=== PATIENT | male | born 1930 | race Caucasian/White ===

== ENCOUNTER 2019-03-15 13:54 | Outpatient (CLI) | payer MEDICARE, OTHER ==
[2019-03-15 17:16] VITALS: BP 156/78
--- NOTE | 2019-03-15 17:16 | SLEEP CARE CONSULTATION ---
Information from patient questionnaire entered by Edwige Chatterjee. I have reviewed and concur with the information entered by Edwige Chatterjee. This document represents the service I personally performed and the decisions made by me, Jaleesa Coates MD, [facility]. History of Present Illness Reason for Visit: New patient, Previously diagnosed sleep apnea (AHI: 42.8), sleep apnea on CPAP therapy Chief Complaint: reports: Other (need new mask) Usual bedtime: 2230 Time it takes to fall asleep: 20-120 minutes Snores at night: Yes Observed to quit breathing while asleep: Yes Sleeps alone due to snoring: No Number of times waking at night: 0-3 Reasons for waking at night: reports: Snoring, Gasping for air, Bathroom Toss, Turn, or Twitch while sleeping: No Recalls having dreams: Yes Usually gets out of bed at: 0730 Feels refreshed in the morning: Yes Morning headache: No Sleepy or fatigued during the day: Yes Ever fallen asleep while driving: Yes Takes day naps: No Dreams during day naps: No Prior sleep studies: Yes Year and Where: 2007 [facility] Additional HPI information: I had the pleasure of seeing Mr. Hawkins today regarding obstructive sleep apnea- hypopnea. As you know, he is a 89 old gentleman who was diagnosed with the sleep-disordered breathing here in 2007. The AHI was 42.8 and will oxygen saturation, 85%. He was prescribed a CPAP device set at 12 cmH2O which he thinks is too low. He uses every night and all night. The compliance/efficacy report is not available because his machine is too old. He wears a nasal mask. He gets his supplies from [address]. He finds the treatment very beneficial. [place] Sleepiness Scale score is 5. Subjective Initial [place] Sleepiness Scale score: 5 Past Medical History Past Medical History: reports: Arthritis, Impotence, Asthma Social History The patient's occupation is RETIRED. Patient is and lives in [place]. Have you smoked in the past 12 months: Yes Years of smokin Quit date: 1966 Alcohol use: Yes Alcohol amount and frequency: 2 beers every week or two Caffeine use: Yes Caffeine amount and frequency: 4 cups coffee Allergies and Home Medications Drug allergies reviewed: Yes Home medication list reviewed: Yes Review of Systems Weight gain over past 5 years: 0-15 Weight loss over past 5 years: 10-15 Cardiovascular: reports: irregular heart rate or pulse, leg or foot swelling Respiratory: reports: sputum production Gastrointestinal: denies: heartburn, difficulty swallowing, nausea, vomitting, diarrhea, abdominal pain, other Urinary: reports: incontinence, impotence Neurological: reports: gait or balance problems Psychiatric: denies: Attention Deficit Hyperactivity, anxiety, depression, mood disorder, claustrophobia, other Ear/Nose/Throat: reports: nasal congestion, sinus problems, nose bleeds, dry mouth/throat, wisdom teeth removed Endocrine: denies: thyroid disease, history of goiter, sluggishness, too hot or cold, excessive thirst, increased appetite, increased urination, unexplained weakness, other Musculoskeletal: denies: joint pain, neck pain, back pain, joint swelling, muscle pain or cramping, mobility problems, other Immunologic: reports: sneezing, itching Physical Exam Vital signs obtained and entered by: Dr. Coates Blood Pressure: 156/78 Heart Rate: 71 O2 Saturation: 97 Height: 5 ft 11 in Weight: 210 lb Body Mass Index: 29.2 BMI Classification: Overweight Neck circumference: 16.5 HEENT: No craniofacial malformation Nostrils: patent to airflow Turbinates: normal Septum: midline Mouth and throat: narrow oropharynx Soft palate: long Hard palate: normal Uvula: normal Uvula visualization: 25% Mallampati Class III Tongue: normal in size Tonsils: absent bilaterally Chin and jaw: normal size and position Neck: normal w/o lymphadenopathy or thyromegaly Heart: regular rate and rhythm Lungs: clear bilaterally Abdomen: soft, non-tender Extremities: no edema or clubbing Neurologic: intact, no focal deficits Impression and Plan IMPRESSION: 1. Obstructive Sleep Apnea-Hypopnea Syndrome, severe, as previously diagnosed. The patient has had good treatment compliance. The current pressure setting appears effective and comfortable. The patient experiences improvement on the treatment. Because the CPAP is now older than the useful life of 5 years, I will order the patient a new one and make it an autoCPAP set between 14 and 16 cmH2O. Plan: 1. Schedule polysomnography + manual CPAP titration study and return in 1 to weeks after the study to discuss result and initiate therapy. 2. Avoid long distance driving or when feeling sleepy. 3. Avoid alcohol, sedative and muscle relaxant around bedtime. 4. Attempt to lose weight. I spent 100% of this 20 minute visit face to face with the patient with greater than 50% of this was spent time counseling the patient and coordination of care.
== END 2019-03-15 13:55 | disposition home or self-care (01) ==
LOC: SC 13:54
PROVIDERS: ATTEND Internal Medicine Pulmonary Disease
DX: G47.33 Obstructive sleep apnea (adult) (pediatric) (principal)
CPT/HCPCS: 99203; G0463; 99212

== ENCOUNTER 2019-07-10 15:57 | Emergency (ER) | payer MEDICARE, OTHER ==
[2019-07-10] MEDS ORDERED: TETANUS/DIPHTHERIA/PERTUSSIS 0.5 ML SYRINGE IM ONE (16:13)
[2019-07-10] MEDS ORDERED: LIDOCAINE 1%-EPI 1:100000 20 ML MDV SUBQ STA (16:13)
[2019-07-10] MEDS ORDERED: cephALEXin 250 MG CAPSULE PO STA (16:13)
[2019-07-10] MEDS ORDERED: BUFFERED LIDOCAINE 10 ML SYRINGE SUBQ STA (16:13)
--- NOTE | 2019-07-10 16:14 | ED Physician Documentation ---
PD HPI UPPER EXT INJURY - Stated complaint Stated Complaint: LT HAND LAC - Chief complaint Chief Complaint: Laceration - History obtained from History obtained from: Patient - History of Present Illness Location: Left ([id number] 89-year-old gentleman struck his left hand a lawnmower just prior to arrival and has multiple lacerations and a contusion on the left hand from banging it on the way out. Tetanus is not quite clear, he thinks less than 10 but maybe not less than 5 years.) Review of Systems Constitutional: reports: Reviewed and negative Throat: reports: Reviewed and negative Cardiac: reports: Reviewed and negative PD PAST MEDICAL HISTORY - Past Medical History Past Medical History: Yes Cardiovascular: Hypertension Respiratory: None Neuro: None Endocrine/Autoimmune: None GI: None : Benign prostate hypertrophy HEENT: None Psych: None Musculoskeletal: None Derm: None - Present Medications Home Medications: Ambulatory Orders Medication Instructions Recorded Confirmed Alfuzosin HCl [Alfuzosin HCl ER] 10 mg PO DAILY 04/18/14 11/14/14 Finasteride 5 mg PO DAILY 04/18/14 11/14/14 Furosemide 20 mg PO DAILY 04/18/14 11/14/14 Omeprazole 20 mg PO DAILY 04/18/14 11/14/14 PredniSONE [PredniSONE INTENSOL] 1 drop PO DAILY 04/18/14 11/14/14 predniSONE [Deltasone] 8 mg PO DAILY 04/18/14 11/14/14 Atorvastatin Calcium [Lipitor] 10 mg PO DAILY 05/09/14 11/14/14 Apraclonidine HCl [Iopidine] 1 drop OP DAILY 11/14/14 11/14/14 Brimonidine Tartrate [Alphagan P] 1 drop OP BID 11/14/14 11/14/14 Magnesium Oxide 500 mg PO DAILY 11/14/14 11/14/14 Cephalexin [Keflex] 500 mg PO Q6H #20 capsule 07/10/19 - Allergies Allergies/Adverse Reactions: Allergies Allergy/AdvReac Type Severity Reaction Status Date / Time metronidazole [From Flagyl] Allergy Anaphylaxis Verified 07/10/19 16:04 - Social History Does the pt smoke?: No Smoking Status: Never smoker - Immunizations Immunizations are current?: No Immunizations: TDAP current <10years - POLST Patient has POLST: No PD ED PE NORMAL - Vitals Vital signs reviewed: Yes - General General: Alert and oriented X 3, No acute distress - Extremities Extremities: Other (There is multiple lacerations on the left hand, one on the dorsum of the left hand over the second metacarpal, curvilinear alert and shallow. Multiple lacerations on the radial side of the left second finger without distal neurovascular compromise or obvious weakness in flexion or extension.) - Neuro Neuro: Alert and oriented X 3, Normal speech Results - Vitals Vitals: Vital Signs - 24 hr 07/10/19 07/10/19 16:01 17:32 Temperature 36.5 C 36.6 C Heart Rate 58 L 60 Respiratory 24 20 Rate Blood Pressure 167/75 H 157/74 H O2 Saturation 99 99 Oxygen O2 Source Room air - Rads (name of study) L hand 3v Radiology: EMP read contemporaneously (no frx) Procedures - Laceration (location) Multiple lacerations over the dorsum of the hand the second digit. In total they measured 9 cm Length in cm: 9 Wound type: Other (On the dorsum of the hand there was a curved laceration over the second metacarpal. It was very shallow it was irrigated and Steri-Stripped. The number complicated lacerations on the radial side of the second digit at the level of the proximal phalanx and MCP totaling 5 cm and then a 1-1/2 cm laceration on the dorsum of the left second finger longitudinally at the level of the DIP.) Neurovascular status: Sensory intact (No neurovascular injury evident in the first or second digit.), Vascular intact (Normal cap refill of all the digits.) Tendon involvement: Tendon intact (Excellent strength in flexion and extension of the second digit.) Anesthesia: Lidocaine 1%, With bicarb Wound Preparation: Irrigated copiously NS Skin layer closure: Other (The 4 cm laceration on the dorsum of the hand was closed with Steri-Strips, the complicated lacerations of the proximal part of the second digit were closed with 4-0 nylon, the smaller laceration at the distal dorsal digit was closed with 5-0 nylon. Total of 21 sutures simple interrupted.) Other: Tetanus booster given Complexity: Simple - Splint (location) L hand Splint applied by: Tech Type of splint: Fiberglass (radial gutter), Short arm Other: Patient tolerated well, No complications, Neurovascular intact Departure - Departure Disposition: 01 Home, Self Care Clinical Impression: Hand laceration Qualifiers: Encounter type: initial encounter Foreign body presence: without foreign body Laterality: left Qualified Code(s): S61.412A - Laceration without foreign body of left hand, initial encounter Condition: Good Record reviewed to determine appropriate education?: Yes Instructions: ED Laceration Hand Prescriptions: Cephalexin [Keflex] 500 mg PO Q6H #20 capsule Comments: Come back for any signs of infection which would include: Redness, swelling, drainage, increased pain, or fevers. You can wash it soap and water. Keep it covered and moist with bacitracin ointment which is available over the counter; avoid neosporin. Follow-up with your physician in 14 days for suture removal. Discharge Date/Time: 07/10/19 17:33
--- NOTE | 2019-07-10 16:41 | XRAY Report ---
Reason: hand contusion, multiple lacs Procedure Date: 07/10/2019 Accession Number: [id number] / [id number] Procedure: XR - Hand 3 View LT CPT Code: Final Report FULL RESULT: EXAM: LEFT HAND RADIOGRAPHY EXAM DATE: 07/10/2019 04:30 PM. CLINICAL HISTORY: Hand contusion, multiple lacs. COMPARISON: None. TECHNIQUE: 3 views. FINDINGS: Bones: No fractures. No bony abnormalities. Joints: Osteoarthritis of the distal interphalangeal joints, especially the first digit, but is mild. Moderate arthropathy at the first carpometacarpal joint with joint space narrowing and some subchondral cystic change. Soft Tissues: Laceration of the second digit with soft tissue swelling. No radiopaque foreign bodies. IMPRESSION: Laceration to second digit, no radiopaque foreign body or bony abnormality. RADIA
[2019-07-10 17:34] VITALS: BP 157/74
== END 2019-07-10 17:33 | disposition home or self-care (01) ==
LOC: ED 15:57
DX: S61.412A Laceration without foreign body of left hand, initial encounter (principal); I10 Essential (primary) hypertension; S61.211A Laceration without foreign body of left index finger without damage to nail, initial encounter; W26.8XXA Contact with other sharp object(s), not elsewhere classified, initial encounter
CPT/HCPCS: 29125; 73130; 90471; 90715; 99283; A9270

== ENCOUNTER 2019-08-10 17:04 | Outpatient (CLI) | payer MEDICARE, OTHER ==
--- NOTE | 2019-08-10 10:21 | SLEEP CARE CONSULTATION ---
Information from patient questionnaire entered by Edwige Chatterjee. I have reviewed and concur with the information entered by Edwige Chatterjee. This document represents the service I personally performed and the decisions made by me, Shayy Polk, RN, MSN, [employer]. History of Present Illness Service Date and Time: 08/10/2019929 Previous diagnosis: Severe, Obstructive Sleep Apnea-Hypopnea Syndrome AHI: 42.8 Reason for follow up: other (5 month with pressure issues) Equipment type: CPAP Equipment obtained from: [facility], [place] (delay in getting new CPAP until this month) Mask style: Full face Backup mask available: Yes Last cushion change: at set up CPAP Compliance Data - Data Reviewed with Patient Average duration of nightly device use: 9h 23m Compliance rate %: 73 Current pressure setting (cmH2O): 14-16 Subjective Patient concerns: reports: mask leak noise (waking to mask leak farts ). denies: aerophagia, mask discomfort, air blowing in eyes, condensation in mask/hose, nasal congestion, dry mouth, nose, throat, epistaxis, other Current pressure setting perceived as: too high On therapy, patient: reports: sleeping better, more rested overall. denies: drowsiness while driving Initial [place] Sleepiness Scale score: 5 Physical Exam Height: 5 ft 11 in Impression and Plan 1. Obstructive Sleep Apnea-Hypopnea Syndrome, severe, with good treatment compliance and elevated residual AHI on new CPAP. On CPAP therapy, the patient has better sleep quality and is more rested overall. Patient is pleased with his new mask fit but has nasal bridge soreness. Thus he is advised to loosen mask slightly for comfort and apply a bandaid to bridge of nose to protect skin. If continued mask concerns, he is to contact [facility], [place]. The residual AHI is much worse with new mask and much more mask leaks increasing resiudal AHI from old CPAP and mask of 5.4 to 20.1. He is also uncomfortable with new pressure range of [id number] as he is waking to mask squeak noises. Thus after review of compliance data from both his old and new CPAP, I will lower his CPAP pressure to [id number]. Patient agreed with plan. He is instructed to contact this office if pressure still uncomfortable. I will will change on modem after visit for patien t comfort and request to complete as soon as can. In addition we discussed measures to reduce nasal congestion that he typically gets this time of year by increasing humidity, using saline nasal spray prior to CPAP to clear nasal passages and showering at night to wash off allergens and facilitate nasal breathing. I explained rationale for a follow up in a month to check 1st compliance on his new CPAP and that staff will contact him to make appointment. Patient's apnea severity and rationale for treatment to reduce apnea, improve sleep quality and reduce cardiovascular and cerebrovascular events was reviewed. * * Change CPAP pressure to 12 cmH2O * implement measures to reduce discomfort of mask and to reduce nasal congestion. * Notify me if snoring with mask or feeling that the pressure is too much or too little * Attempt to lose weight * Call this office if any problems using CPAP * Return for follow up in 1 month for 1st compliance of new CPAP , or sooner if concerns arise Visit Type: Telehealth Phone (to minimize risk of Covid 19 exposure, the patient agrees to telehealth visit and billing of his insurance) Patient Location: Home Location of Provider: Home Patient agrees and consents to this telehealth visit type: Yes Time Spent with Patient (minutes): 10 Provider Statement: I spent 100% of the Telehealth Phone Call with the patient with greater than 50% spent counseling the patient and coordination of care.
== END 2019-08-10 17:05 | disposition home or self-care (01) ==
LOC: SC 17:04
PROVIDERS: ATTEND Nurse Practitioner Family
DX: G47.33 Obstructive sleep apnea (adult) (pediatric) (principal)

== ENCOUNTER 2020-05-09 08:00 | Outpatient (CLI) | payer MEDICARE, OTHER ==
[2020-05-09 12:53] LABS: BASOPHILS % (AUTO) 0.8 %; EOSINOPHILS # (AUTO) 0.2 10^3/uL (0.0-0.7); EOSINOPHILS % (AUTO) 3.1 %; HGB - HEMOGLOBIN 13.5 g/dL (14.0-18.0); LYMPHOCYTES # (AUTO) 1.1 10^3/uL (1.5-3.5); LYMPHOCYTES % (AUTO) 21.3 %; MEAN CORPUSCULAR HEMOGLOBIN 34.9 pg (27.0-31.0); MEAN CORPUSCULAR HGB CONC 34.4 g/dL (32.0-36.0); MEAN CORPUSCULAR VOLUME 101.6 fL (80.0-94.0); MEAN PLATELET VOLUME 11.6 fL (7.4-11.4); MONOCYTES # (AUTO) 0.6 10^3/uL (0.0-1.0); MONOCYTES % (AUTO) 10.6 %; NEUTROPHILS # (AUTO) 3.3 10^3/uL (1.5-6.6); PLT - PLATELET COUNT 135 10^3/uL (130-450); RED BLOOD COUNT 3.87 10^6/uL (4.70-6.10); RED CELL DISTRIBUTION WIDTH 12.8 % (12.0-15.0); WHITE BLOOD COUNT 5.2 x10^3/uL (4.8-10.8)
[2020-05-09 13:12] LABS: ALBUMIN 4.1 g/dL (3.2-5.5); ALBUMIN/GLOBULIN RATIO 1.4 (1.0-2.2); ALKALINE PHOSPHATASE 42 IU/L (42-121); ALT ALANINE AMINOTRANSFERASE 13 IU/L (10-60); AST ASPARTATE AMINOTRANSFERASE 19 IU/L (10-42); BUN - BLOOD UREA NITROGEN 22 mg/dL (6-20); CALCIUM 9.6 mg/dL (8.5-10.3); CARBON DIOXIDE - CO2 29 mmol/L (21-32); CHLORIDE 97 mmol/L (101-111); CHOL/HDL RATIO 2.1 (<5.0); CHOLESTEROL 152 mg/dL; CREATININE 1.1 mg/dL (0.6-1.2); GLUCOSE 99 mg/dL (70-100); HDL CHOLESTEROL 71 mg/dL; LDL CHOLESTEROL,CALCULATED 70 mg/dL; SODIUM 136 mmol/L (135-145); VLDL CHOLESTEROL 11 mg/dL
== END 2020-05-09 08:01 | disposition home or self-care (01) ==
LOC: LAB.WCP 08:00
PROVIDERS: ATTEND Internal Medicine
DX: D69.6 Thrombocytopenia, unspecified (principal); G47.62 Sleep related leg cramps; I25.5 Ischemic cardiomyopathy; R42 Dizziness and giddiness
CPT/HCPCS: 36415; 80053; 80061; 83721; 84443; 85025

== ENCOUNTER 2020-09-26 10:11 | Outpatient (CLI) | payer MEDICARE, OTHER ==
--- NOTE | 2020-09-26 10:52 | SLEEP CARE CONSULTATION ---
Information from patient questionnaire entered by Linda Benitez. I have reviewed and concur with the information entered by Linda Benitez. This document represents the service I personally performed and the decisions made by , Teodora Fierro ARNP. History of Present Illness Service Date and Time: 09/26/2020 1011 Previous diagnosis: Severe, Obstructive Sleep Apnea-Hypopnea Syndrome AHI: 42.8 (in 2007) Reason for follow up: annual (last seen 09/2019) Equipment type: CPAP Equipment obtained from: [facility], [place] (getting supplies as needed; too far to travel there/gets through mail) Mask style: Full face (medium) Mask brand: Resmed Backup mask available: Yes (old mask) Prior sleep studies: Yes Year and Where: 2007 - [facility] HPI additional information: BLAZE MARINO was diagnosed to have severe, AHI 42.8, obstructive sleep apnea- hypopnea syndrome and returned today for CPAP therapy annual follow-up. CPAP Compliance Data - Data Reviewed with Patient Average duration of nightly device use: 9 hr 2 min Compliance rate %: 99 (180 days) Current pressure setting (cmH2O): 14 Humidity settin Average residual AHI: 8.2 Compliance data discussion: Mirage activa lt nasal mask Ultra Mirage full face Subjective Missed days of use due to: reports: mask issues Patient concerns: reports: air blowing in eyes, mask leak noise, nasal congestion (due to allergies), dry mouth, nose, throat, other (snore while using device). denies: aerophagia, mask discomfort, condensation in mask/hose, epistaxis Observed to snore while using device: Yes Current pressure setting perceived as: comfortable On therapy, patient: reports: sleeping better, awakening more refreshed, being more awake and alert during the day, more rested overall. denies: drowsiness while driving Initial [place] Sleepiness Scale score: 5 (in 2019)(12 in 2008) Current [place] Sleepiness Scale score: 5 Allergies and Home Medications Home medication list reviewed: Yes (no changes) Review of Systems Review of systems same as previous: Yes (no changes) Physical Exam Heart Rate: 65 O2 Saturation: 98 Height: 5 ft 11 in Weight: 195 lb Body Mass Index: 27.1 BMI Classification: Overweight Impression and Plan 1. Obstructive Sleep Apnea-Hypopnea Syndrome, severe, with excellent treatment compliance and fair apnea control with elevated residual AHI. On CPAP therapy, the patient has better sleep quality and is more rested overall. The patients pressure will be changed to autoCPAP 15 cmH20 for elevation of residual AHI. Patient advised to contact me if pressure change is uncomfortable so that it can be adjusted. Goals for apnea control discussed. Patient would like to find a better fit for a fullface mask to reduce mask leak issues. The best fitting mask he has goes over his nose but this causes him to breathe through his mouth and wakes up his . I spent some time fitting his masks to his face and he does prefer the Ultra Mirage. He would also like to change DME companies to one that might be closer for him to be able to visit in person. Patient was informed that another DME can be used. I will have my administrative support coordinator inform of DME options. A DWO prescription will then be made. Patient advised to contact this office if further supply problems. Patient's apnea severity and rationale for treatment to reduce apnea, improve sleep quality and reduce cardiovascular and cerebrovascular events was reviewed. * Change auto CPAP pressure to 15 cmH2O * Transfer DME * Notify me if snoring with mask or feeling that the pressure is too much or too little * Attempt to lose weight * Call this office if any problems using CPAP * Return for follow up in 1 year, or sooner if concerns arise Counseling Topics: Spare mask, Weight loss health impact Visit Type: In Office Time Spent with Patient (minutes): 36 Provider Statement: I spent 100% of the Face to Face Visit with the patient with greater than 50% spent counseling the patient and coordination of care.
== END 2020-09-26 10:12 | disposition home or self-care (01) ==
LOC: SC 10:11
PROVIDERS: ATTEND Nurse Practitioner Family
DX: G47.33 Obstructive sleep apnea (adult) (pediatric) (principal); E66.3 Overweight; Z68.27 Body mass index [BMI] 27.0-27.9, adult
CPT/HCPCS: 99214; G0463; 99212